=== PATIENT | female | born 1985 | race Caucasian/White ===

== ENCOUNTER 2019-11-28 17:59 | Emergency (ER) | payer MEDICAID ==
[~2019-11-28] VITALS: Ht 170.2 cm; Wt 63.6 kg
[~2019-11-28 17:59] MED LIST: CYCL-1 PO; LACT1CAP73 PO; MULT-785 PO; PHEN-786 PO
[2019-11-28 18:33] VITALS: BP 127/72
[2019-11-28] MEDS ORDERED: ibuprofen 200mg tablet PO ONE (18:45)
== END 2019-11-28 19:30 | disposition home or self-care (01) ==
LOC: ER 17:59
DX: S93.401A Sprain of unspecified ligament of right ankle, initial encounter (principal); X50.1XXA Overexertion from prolonged static or awkward postures, initial encounter; Y93.67 Activity, basketball; Y92.89 Other specified places as the place of occurrence of the external cause; Y99.8 Other external cause status
CPT/HCPCS: 73610; 99284